=== PATIENT | female | born 1965 | race Caucasian/White ===

== ENCOUNTER 2019-10-03 15:43 | Emergency (ER) | payer MEDICAID ==
[~2019-10-03] VITALS: Ht 165.1 cm; Wt 72.6 kg
--- NOTE | 2019-10-03 16:10 | NUR ---
PT PRESENTED TO THE ER WITH A C/O LT SIDED FLANK PAIN 8/10 X 2HRS. 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 URINE SAMPLE WAS OBTAINED AFTER TRIAGE AND SENT TO THE LAB. PT AMBULATED TO ER 14 WITH A SLOW STEADY GAIT. PT CHANGED INTO A GOWN AND DR SALAS IS AT THE BEDSIDE EVALUATING THE PT. Female signals collection technician accompanied female patient for DR SALAS'S EVALUATION.
[2019-10-03] MEDS ORDERED: MORPHINE SULFATE INJ 2 MG/ML DISP.SYRIN ONE (16:12)
[2019-10-03] MEDS ORDERED: ONDANSETRON HCL/PF 4 MG/2 ML VIAL ONE (16:12)
--- NOTE | 2019-10-03 16:15 | NUR ---
20G IV STARTED ON LAC. BLOOD WAS DRAWN AND SENT TO LAB.
[2019-10-03 16:25] LABS: BASOPHILS # (AUTO) 0.1 /CMM (0.0-0.2); BASOPHILS % (AUTO) 0.9 % (0.0-2.0); EOSINOPHILS % (AUTO) 0.9 % (0.0-6.0); HEMATOCRIT 40 % (33-45); HEMOGLOBIN 13.5 g/dL (11.5-14.8); LYMPHOCYTES # (AUTO) 1.4 /CMM (0.8-4.8); LYMPHOCYTES % (AUTO) 23.6 % (20.0-44.0); MEAN CORPUSCULAR HGB CONC 33 g/dl (31.0-36.0); MEAN CORPUSCULAR VOLUME 90 fL (82-100); MONOCYTES # (AUTO) 0.4 /CMM (0.1-1.30); MONOCYTES % (AUTO) 6.2 % (2.0-12.0); NEUTROPHILS % (AUTO) 68.4 % (43.0-81.0); PLATELET COUNT (AUTO) 241 /CMM (150-450); RED BLOOD CELL COUNT(AUTO) 4.47 MIL/uL (4.0-5.2); WHITE BLOOD COUNT (AUTO) 5.9 K/uL (4.3-11.0)
--- NOTE | 2019-10-03 16:26 | NUR ---
PATIENT VOMITED AND DR SALAS MADE AWARE.
--- NOTE | 2019-10-03 16:27 | NUR ---
PT STATED THAT HER PAIN HAS GONE DOWN TO 6/10 AFTER VOMITTING. PT WILL BE REASSESSED AGAIN TO SEE IF THE PAIN MEDICATION IS EFFECTIVE. WILL CONTINUE TO MONITOR THE PT'S VS.
[2019-10-03] MEDS ORDERED: MORPHINE SULFATE INJ 2 MG/ML DISP.SYRIN IV ONE (16:30)
[2019-10-03] MEDS ORDERED: ONDANSETRON HCL/PF - ER 4 MG/2 ML VIAL IV ONE (16:30)
[2019-10-03 16:34] LABS: CREATININE 0.9 mg/dL (0.6-1.3); POTASSIUM 3.8 mmol/L (3.5-5.1)
[2019-10-03 16:36] LABS: BILIRUBIN,URINE Negative (NEGATIVE); BLOOD, URINE Moderate Ery/uL (NEGATIVE); COLOR,URINE Yellow (YELLOW); KETONES,URINE Negative (NEGATIVE); LEUKOCYTE ESTERASE ,URINE Negative (NEGATIVE); NITRITE, URINE Negative (NEGATIVE); PH,URINE 6.5 (5.0-8.0); PROTEIN,URINE Negative (NEGATIVE); UGLUCOSE Negative (NEGATIVE); UROBILINOGEN,URINE 0.2 EU/dL (0.2)
[2019-10-03 16:39] LABS: APPEARANCE,URINE SLIGHTLY HAZY (CLEAR); BACTERIA,URINE Few /HPF (None Seen); RBC,URINE 21-50 /HPF (0-2); SQUAMOUS EPITHELIAL CELL,UR Moderate /HPF (None Seen)
--- NOTE | 2019-10-03 16:44 | NUR ---
PT RETURNED FROM CT.
[2019-10-03 16:49] LABS: ALBUMIN 4.1 g/dL (3.4-5.0); BILIRUBIN,DIRECT 0.1 mg/dL (0.0-0.2); BILIRUBIN,TOTAL 0.4 mg/dL (0.2-1.0); CALCIUM, SERUM 9.4 mg/dL (8.5-10.1); TOTAL PROTEIN, SERUM 7.4 g/dL (6.4-8.2)
--- NOTE | 2019-10-03 16:52 | NUR ---
PT IS C/O PAIN INCREASING. NEW ORDERS GIVEN.
[2019-10-03] MEDS ORDERED: KETOROLAC TROMETHAMINE INJ 30 MG/ML VIAL IV ONE (17:00)
[2019-10-03] MEDS ORDERED: KETOROLAC TROMETHAMINE 15 MG/ML VIAL ONE (17:02)
--- NOTE | 2019-10-03 17:07 | NUR ---
PT IS REC'ING MEDICATION ORDERED.
--- NOTE | 2019-10-03 17:31 | NUR ---
CALLING QUIANA RE: CT READ
--- NOTE | 2019-10-03 18:40 | NUR ---
IV removed. Catheter intact and site benign. Pressure and 4x4 applied to site. No bleeding noted. Patient discharged to home in stable condition. Written and verbal after care instructions given. Patient verbalizes understanding of instruction AND RX. PT AMBULATED OUT WITH A STEADY GAIT. PT'S IS DRIVING PT HOME. VSS. NAD NOTED.
[2019-10-03 19:00] VITALS: BP 133/75
== END 2019-10-03 19:00 | disposition home or self-care (01) ==
LOC: ER 15:47
DX: N20.1 Calculus of ureter (principal); Z98.890 Other specified postprocedural states; Z90.710 Acquired absence of both cervix and uterus
CPT/HCPCS: 36415; 74176; 80048; 80076; 81001; 83690; 85025; 96374; 96375; 99285; A4217; J1885; J2270; J2405; 81000-TC

== ENCOUNTER 2020-07-09 10:24 | Emergency (ER) | payer MEDICAID ==
[~2020-07-09] VITALS: Ht 165.1 cm; Wt 77.1 kg
--- NOTE | 2020-07-09 13:00 | NUR ---
Patient came in to the er c/o high blood pressure due to stressed about taking care of family. On room air, breathing evenly and unlabored. connected to the monitor and pulse ox. Kept comfortable, will continue to monitor accordingly.
[2020-07-09 13:11] LABS: BASOPHILS % (AUTO) 0.6 % (0.0-2.0); HEMATOCRIT 43 % (33-45); HEMOGLOBIN 14.5 g/dL (11.5-14.8); LYMPHOCYTES # (AUTO) 0.9 /CMM (0.8-4.8); LYMPHOCYTES % (AUTO) 18.2 % (20.0-44.0); MEAN CORPUSCULAR HGB CONC 34 g/dl (31.0-36.0); MEAN CORPUSCULAR VOLUME 90 fL (82-100); MONOCYTES # (AUTO) 0.3 /CMM (0.1-1.30); MONOCYTES % (AUTO) 5.9 % (2.0-12.0); NEUTROPHILS # (AUTO) 3.7 /CMM (1.8-8.9); NEUTROPHILS % (AUTO) 74.3 % (43.0-81.0); PLATELET COUNT (AUTO) 238 /CMM (150-450); RED BLOOD CELL COUNT(AUTO) 4.83 MIL/uL (4.0-5.2)
[2020-07-09 13:24] LABS: CALCIUM, SERUM 9.8 mg/dL (8.5-10.1); CARBON DIOXIDE 26 mmol/L (21-32); CHLORIDE 103 mmol/L (98-107); CREATININE 0.6 mg/dL (0.6-1.3); GLUCOSE 229 mg/dL (74-106); POTASSIUM 3.9 mmol/L (3.5-5.1); SODIUM SERUM 141 mmol/L (136-145); UREA NITROGEN, BLOOD 18 mg/dL (7-18)
[2020-07-09 14:08] VITALS: BP 155/81
--- NOTE | 2020-07-09 14:08 | NUR ---
Patient discharged to home in stable condition. Written and verbal after care instructions given. Patient verbalizes understanding of instruction.
== END 2020-07-09 14:08 | disposition home or self-care (01) ==
LOC: ER 10:28
DX: I10 Essential (primary) hypertension (principal); F41.9 Anxiety disorder, unspecified; Z98.890 Other specified postprocedural states
CPT/HCPCS: 36415; 71045-TC; 80048-TC; 84484-TC; 85025-TC

== ENCOUNTER 2020-07-09 19:21 | Emergency (ER) | payer MEDICAID ==
[~2020-07-09] VITALS: Ht 165.1 cm; Wt 77.1 kg
[2020-07-09 19:27] VITALS: BP 166/102
--- NOTE | 2020-07-09 22:22 | NUR ---
PT REFUSED BLOOD DRAW AND IV
--- NOTE | 2020-07-09 22:40 | NUR ---
Pt refused chest xray. notified.
--- NOTE | 2020-07-09 23:00 | NUR ---
Patient eloped from facility. ER MD notified.
--- NOTE | 2020-07-09 23:21 | NUR ---
Mahnaz strauss in ED - 07/09/20 at 2321 by TREY Patient eloped from [facility] EMILY BENTLEY notified.
== END 2020-07-09 23:23 | disposition left against medical advice (07) ==
LOC: ER 19:22
DX: I10 Essential (primary) hypertension (principal); F41.9 Anxiety disorder, unspecified; R07.89 Other chest pain; Z98.890 Other specified postprocedural states

== ENCOUNTER 2022-01-28 16:57 | Emergency (ER) | payer MEDICAID ==
[~2022-01-28] VITALS: Ht 165.1 cm; Wt 68.0 kg
--- NOTE | 2022-01-28 17:09 | NUR ---
BIBSelf, c/o chest pain
--- NOTE | 2022-01-28 17:23 | NUR ---
pt stated she was driving felt chest pain drove on freeway very fast here and pain got worse and worse and radiating down left arm making it feel numb and tingling
--- NOTE | 2022-01-28 17:26 | NUR ---
X-RAY of Chest at this time
[2022-01-28 17:45] LABS: BASOPHILS % (AUTO) 0.8 % (0.0-2.0); HEMATOCRIT 42 % (33-45); HEMOGLOBIN 13.8 g/dL (11.5-14.8); LYMPHOCYTES # (AUTO) 1.3 K/uL (0.8-4.8); LYMPHOCYTES % (AUTO) 37.7 % (20.0-44.0); MEAN CORPUSCULAR HGB CONC 33 g/dl (31.0-36.0); MEAN CORPUSCULAR VOLUME 89 fL (82-100); MONOCYTES # (AUTO) 0.2 K/uL (0.1-1.30); NEUTROPHILS # (AUTO) 1.9 K/uL (1.8-8.9); NEUTROPHILS % (AUTO) 52.5 % (43.0-81.0); PLATELET COUNT (AUTO) 249 K/uL (150-450); RED BLOOD CELL COUNT(AUTO) 4.66 MIL/uL (4.0-5.2); WHITE BLOOD COUNT (AUTO) 3.6 K/uL (4.3-11.0)
[2022-01-28 18:17] LABS: CALCIUM, SERUM 9.7 mg/dL (8.5-10.1); CARBON DIOXIDE 30 mmol/L (21-32); CHLORIDE 103 mmol/L (98-107); CREATININE 0.8 mg/dL (0.6-1.3); GLUCOSE 157 mg/dL (74-106); POTASSIUM 3.4 mmol/L (3.5-5.1); SODIUM SERUM 140 mmol/L (136-145); UREA NITROGEN, BLOOD 20 mg/dL (7-18)
--- NOTE | 2022-01-28 21:31 | NUR ---
COVID ANTIGEN SWAB COLLECTED
--- NOTE | 2022-01-28 23:13 | NUR ---
Patient does not wish to proceed with medical care recommended by Dr. BONILLA. Patient given information related to possible complications, up to and including , which could occur as a result of leaving the hospital at this time. Patient verbalizes understanding of risks involved due to leaving against medical advice. Patient has signed AMA form.
[2022-01-28 23:14] VITALS: BP 126/80
[2022-01-29] MEDS ORDERED: ERGO500093 PO (13:53)
[2022-01-29] MEDS ORDERED: METF-440 PO (13:53)
[2022-01-29] MEDS ORDERED: LOSA50TA39 PO (13:53)
== END 2022-01-28 23:14 | disposition left against medical advice (07) ==
LOC: ER 17:17
DX: R07.9 Chest pain, unspecified (principal); R00.2 Palpitations; I10 Essential (primary) hypertension; E11.9 Type 2 diabetes mellitus without complications; Z53.29 Procedure and treatment not carried out because of patient's decision for other reasons; Z20.822 Contact with and (suspected) exposure to COVID-19
CPT/HCPCS: 36415; 71045; 80048; 84484 ×2; 85025; 87426; 93005; 99285; C9803

== ENCOUNTER 2022-01-29 11:26 | Inpatient (IN) | payer MEDICAID ==
[~2022-01-29] VITALS: Ht 165.1 cm; Wt 71.7 kg
[2022-01-29 12:08] LABS: EOSINOPHILS % (AUTO) 2.4 % (0.0-6.0); HEMATOCRIT 41 % (33-45); HEMOGLOBIN 13.6 g/dL (11.5-14.8); LYMPHOCYTES # (AUTO) 1.3 K/uL (0.8-4.8); MEAN CORPUSCULAR HGB CONC 33 g/dl (31.0-36.0); MEAN CORPUSCULAR VOLUME 89 fL (82-100); MONOCYTES # (AUTO) 0.3 K/uL (0.1-1.30); MONOCYTES % (AUTO) 8.3 % (2.0-12.0); NEUTROPHILS # (AUTO) 2.1 K/uL (1.8-8.9); NEUTROPHILS % (AUTO) 55.3 % (43.0-81.0); PLATELET COUNT (AUTO) 259 K/uL (150-450); WHITE BLOOD COUNT (AUTO) 3.9 K/uL (4.3-11.0)
[2022-01-29 12:15] LABS: CALCIUM, SERUM 9.7 mg/dL (8.5-10.1); CREATININE 0.8 mg/dL (0.6-1.3); POTASSIUM 3.9 mmol/L (3.5-5.1)
[2022-01-29] MEDS ORDERED: ERGO500093 PO (13:53)
[2022-01-29] MEDS ORDERED: METF-440 PO (13:53)
[2022-01-29] MEDS ORDERED: LOSA50TA39 PO (13:53)
--- NOTE | 2022-01-29 14:09 | NUR ---
[facility] [phone] REQUESTING CLINICALS FAXED TO [phone]
--- NOTE | 2022-01-29 14:34 | NUR ---
CALLED [facility] [phone] PT CAN STAY AUTH IS [id number]
--- NOTE | 2022-01-29 14:42 | NUR ---
CONTACTED DR. RODRIGUEZ TO CALL US BACK.
--- NOTE | 2022-01-29 14:46 | NUR ---
DR. VARGAS SPEAKING WITH DR. ROD
[2022-01-29] MEDS ORDERED: HYDROCODONE/APAP 5/325MG TABLET PO PRN (18:00)
[2022-01-29] MEDS ORDERED: ACETAMINOPHEN 325 MG TABLET PO PRN (18:00)
[2022-01-29] MEDS ORDERED: LOSARTAN POTASSIUM 50 MG TABLET PO PRN (18:00)
[2022-01-29] MEDS ORDERED: ZOLPIDEM TARTRATE 5 MG TABLET PO PRN (18:00)
[2022-01-29] MEDS ORDERED: CLONIDINE HCL 0.1 MG TABLET PO PRN (18:00)
[2022-01-29] MEDS ORDERED: NITROGLYCERIN 0.4 MG/TAB BOTTLE SL PRN (18:00)
[2022-01-29] MEDS ORDERED: DEXTROSE 50%-WATER 50 ML DISP.SYRIN IV PRN (18:30)
[2022-01-29] MEDS ORDERED: *INSULIN REGULAR(HUMULIN R)HUM 100 UNIT/ML VIAL SQ PRN (18:30)
[2022-01-29] MEDS: ASPIRIN EC 81 MG TABLET.DR PO SCH (18:58)
[2022-01-29] MEDS: ENOXAPARIN SODIUM 40 MG/0.4 ML DISP.SYRIN SQ SCH (19:06)
--- NOTE | 2022-01-29 19:26 | NUR ---
PT HAD REFUSED CHEST X-RAY EDUCATED REASONING TO HAVE ONE THEN AGREED HOURS LATER , PT REFUSED IV, EDUCATED CONSEQUENCES AND REASONS FOR HAVING IT AND BENEFITS AGREED TO RECEIVE IV HOURS LATER, DUE TO BEHAVIOR AND REFUSING CARE , PROCESSING OF PT INFO HAS BEEN DELAYED, EDUCATED IF SHE WILL COOPERATE AND WORK WITH US TO CARE FOR HER THE PROCESS WILL GO SMOOTHER AND SHOULD RUN IN FASTER TIME, SHE IS NOW WILLING TO COOPERATE AT THIS TIME.
--- NOTE | 2022-01-29 19:45 | NUR ---
ROOM 324-4 TELE
--- NOTE | 2022-01-29 20:18 | NUR ---
PT WILL BE IN 314-2
--- NOTE | 2022-01-29 20:35 | NUR ---
REPORT GIVEN TO CLAUDIA ONEILLHAILEY
--- NOTE | 2022-01-29 21:13 | NUR ---
[facility] UN[facility] LEAD PSYCHOLOGISTHIGH SPEED OPERATOR NOTES RECEIVED FROM ER THIS 56 Y.O. FEMALE,ALERT,ORIENTED X4,NO SOB,DX-CHEST PAIN,98% ON ROOM AIR,CHEST PAIN TOLERABLE AT 2/10 ON PAIN SCALE.WITH SALINE LOCK LEFT AC INTACT AND PATENT.AMBULATE WITH STEADY GAIT,NO KNOWN ALLERGY.WITH KNOWN HISTORY OF HIGH BLOOD PRESSURE AND DM TYPE 2,.ORIENTED TO ROOM SET UP,CALL LIGHT IN REACH,NEEDS ANTICIPATED
[2022-01-29 21:15] VITALS: BP 145/80
[2022-01-29 21:25] VITALS: BP 145/75
--- NOTE | 2022-01-29 21:26 | NUR ---
TRANSFERRED PATIENT TO RM 314-2
[2022-01-29] MEDS ORDERED: ATORVASTATIN 10 MG TABLET PO SCH (22:00)
[2022-01-29] MEDS: BLOOD SUGAR DIAGNOSTIC 1 EACH STRIP VI SCH (22:15)
--- NOTE | 2022-01-29 22:30 | NUR ---
DIGITAL PRE PRESS OPERATOR NOTES ACCU-CHECK BLOOD SUGAR CHECK 211,REFUSED INSULIN COVERAGE AND SHE'S GOING FOR A PROCEDURE IN THE MORNING
[2022-01-30] VITALS: BP 137/85
[2022-01-30] MEDS: METOPROLOL TARTRATE 50 MG TABLET PO SCH ×3 (00:32→12:15)
[2022-01-30] MEDS: BLOOD SUGAR DIAGNOSTIC 1 EACH STRIP VI SCH ×2 (06:52→12:09)
--- NOTE | 2022-01-30 06:59 | NUR ---
USED CAR SALES SUPERVISOR NOTES FAIRLY RESTED,VITAL SIGNS WITH NORMAL LIMITS.BLOOD SUGAR THIS MORNING 188,REFUSED INSULIN COVERAGE,GOING FOR CT HEART WITH 3D DIMENSION.SALINE LOCK REMAINS PATENT ON LEFT AC,IN NO ACUTE DISTRESS.
[2022-01-30 07:14] LABS: BASOPHILS % (AUTO) 0.9 % (0.0-2.0); EOSINOPHILS % (AUTO) 2.5 % (0.0-6.0); HEMATOCRIT 41 % (33-45); HEMOGLOBIN 13.8 g/dL (11.5-14.8); LYMPHOCYTES # (AUTO) 1.2 K/uL (0.8-4.8); LYMPHOCYTES % (AUTO) 35.6 % (20.0-44.0); MEAN CORPUSCULAR HGB CONC 34 g/dl (31.0-36.0); MEAN CORPUSCULAR VOLUME 88 fL (82-100); MONOCYTES # (AUTO) 0.3 K/uL (0.1-1.30); MONOCYTES % (AUTO) 7.8 % (2.0-12.0); NEUTROPHILS # (AUTO) 1.9 K/uL (1.8-8.9); NEUTROPHILS % (AUTO) 53.2 % (43.0-81.0); PLATELET COUNT (AUTO) 247 K/uL (150-450); RED BLOOD CELL COUNT(AUTO) 4.59 MIL/uL (4.0-5.2); WHITE BLOOD COUNT (AUTO) 3.5 K/uL (4.3-11.0)
[2022-01-30 07:18] LABS: CALCIUM, SERUM 9.8 mg/dL (8.5-10.1); CREATININE 0.8 mg/dL (0.6-1.3); POTASSIUM 4.7 mmol/L (3.5-5.1)
--- NOTE | 2022-01-30 07:44 | NUR ---
RN OPENING NOTE- PT IN BED AWAKE, ALERT ORIENTED PERSON, PLACE, TIME, PURPOSE. DENIES PAIN, DENIES CP OR TIGHTNESS. AWAITING ECHO, SAW DR BRICEÑO, INTERACTIVE, VS STABLE, TELE SR AT 74, SIDE RAILS UP, BED LOCKED, CALL LIGHT IN REACH. MONITOR / ASSIST
[2022-01-30] MEDS: ENOXAPARIN SODIUM 40 MG/0.4 ML DISP.SYRIN SQ SCH (09:00)
[2022-01-30] MEDS: ASPIRIN EC 81 MG TABLET.DR PO SCH (09:00)
[2022-01-30] MEDS ORDERED: METOPROLOL TARTRATE INJ 5 MG/5 ML AMPUL ONE (10:18)
[2022-01-30] MEDS ORDERED: IV NS 0.9% 250 ML IV ONE (10:20)
[2022-01-30] MEDS ORDERED: IOHEXOL-350 100 ML VIAL IV ONE (10:20)
[2022-01-30] MEDS ORDERED: CT SWABBABLE VALVE TRANS SET 1 EA INFUS.SET MC ONE (10:20)
[2022-01-30] MEDS: METOPROLOL TARTRATE INJ 5 MG/5 ML AMPUL IVP PRN ×4 (10:25→10:40)
[2022-01-30] MEDS ORDERED: NITROGLYCERIN 0.4 MG/TAB BOTTLE SL PRN (10:30)
[2022-01-30] MEDS: INSULIN REGULAR, HUMAN 100 UNIT/ML 3 ML VIAL SQ PRN ×2 (12:11→12:20)
[2022-01-30 12:15] VITALS: BP 126/70
--- NOTE | 2022-01-30 12:21 | NUR ---
RN NOTE- PT ACCU-CHECK BS-200. PT TO RECEIVE 3U REG INSULIN. REFUSED
--- NOTE | 2022-01-30 16:01 | NUR ---
GATHERING MACHINE FEEDER NOTE- DR RODRIGUEZ PHONED. PTS ANGIO WAS NEGATIVE. ORDERED HER DC. PT VS STABLE, AOX4, POST DC INSTRUCTIONS GIVEN / UNDERSTOOD. IV SITES DC'D, ID WRISTBAND REMOVED. ESCORTED OFF UNIT TO DOWNSTAIRS BY STAFF
[2022-02-03] MEDS ORDERED: ERGOCALCIFEROL (VITAMIN D 2) 50,000 UNIT CAPSULE PO SCH (09:00)
== END 2022-01-30 16:00 | disposition home or self-care (01) | DRG 203 ==
LOC: ER 11:28 → TELE 20:54
PROVIDERS: ADMIT Internal Medicine; ATTEND Internal Medicine
DX: M94.0 Chondrocostal junction syndrome [Tietze] (principal); I10 Essential (primary) hypertension; E11.9 Type 2 diabetes mellitus without complications; Z79.84 Long term (current) use of oral hypoglycemic drugs; Z79.899 Other long term (current) drug therapy; Z82.3 Family history of stroke; Z82.49 Family history of ischemic heart disease and other diseases of the circulatory system
CPT/HCPCS: 36415; 75574; 80048-TC; 80061-TC; 82962-TC; 83880; 84484-TC; 85025-TC; 87081-TC; G0378; J1650; J1815; J3490; J7050; Q9967

== ENCOUNTER 2022-09-03 22:00 | Emergency (ER) | payer MEDICAID ==
[~2022-09-03] VITALS: Ht 165.1 cm; Wt 72.6 kg
[~2022-09-03 22:00] MED LIST: ERGO500093 PO; LOSA50TA39 PO; METF-440 PO
--- NOTE | 2022-09-03 22:35 | NUR ---
ARJUN. ELEVATED BP. DIDN'T TAKE METOPROLOL TODAY D/T ABLATION TOMORROW. PATIENT IS AAOX4. ABLE TO MAKE NEEDS KNOWN. PATIENT IS ANXIOUS AND STRESSING OUT WITH HER PROCEDURE TOMORROW. PLACED COMFORTABLY IN BED. VITALS CHECKED.
[2022-09-03 23:08] VITALS: BP 143/84
--- NOTE | 2022-09-03 23:16 | NUR ---
Patient discharged to home in stable condition. Written and verbal after care instructions given. Patient verbalizes understanding of instruction.
== END 2022-09-03 23:16 | disposition home or self-care (01) ==
LOC: ER 22:02
DX: I10 Essential (primary) hypertension (principal); E11.9 Type 2 diabetes mellitus without complications; Z79.899 Other long term (current) drug therapy

== ENCOUNTER 2025-03-22 00:55 | Emergency (ER) | payer MEDICAID, OTHER ==
[~2025-03-22] VITALS: Ht 165.1 cm; Wt 72.6 kg
[2025-03-22 02:23] LABS: APPEARANCE,URINE CLEAR (CLEAR); BLOOD, URINE NEGATIVE Ery/uL (NEGATIVE); LEUKOCYTE ESTERASE ,URINE NEGATIVE (NEGATIVE); NITRITE, URINE NEGATIVE (NEGATIVE); UGLUCOSE NEGATIVE (NEGATIVE)
[2025-03-22 02:32] VITALS: BP 136/85; TEMP 98.1; O2SAT 98
== END 2025-03-22 02:33 | disposition home or self-care (01) ==
LOC: ER 01:00
DX: R35.0 Frequency of micturition (principal); I10 Essential (primary) hypertension; E11.9 Type 2 diabetes mellitus without complications; Z79.84 Long term (current) use of oral hypoglycemic drugs